=== PATIENT | male | born 1985 | race Two or more races ===

== ENCOUNTER 2017-05-09 22:16 | Emergency (ER) | payer OTHER ==
[2017-05-09 22:23] VITALS: BP 150/96
[2017-05-09] MEDS ORDERED: ACETAMINOPHEN 325 MG TABLET PO ONE (22:24)
--- NOTE | 2017-05-09 22:52 | RADIOLOGY REPORT (SQ) ---
EXAM DESCRIPTION: KNEE LEFT 2 VIEWS COMPLETED DATE/TIME: 05/09/2017 10:45 pm REASON FOR STUDY: injury COMPARISON: None. NUMBER OF VIEWS: Two views. TECHNIQUE: AP and lateral radiographic images acquired of the left knee. LIMITATIONS: None. FINDINGS: MINERALIZATION: Normal. BONES: No acute fracture or dislocation. No worrisome bone lesions. JOINT: No effusion. SOFT TISSUES: No soft tissue swelling. No radio-opaque foreign body. OTHER: No other significant finding. IMPRESSION: NEGATIVE STUDY OF THE LEFT KNEE. NO RADIOGRAPHIC EVIDENCE OF ACUTE INJURY. TECHNICAL DOCUMENTATION: JOB ID: [id number] [employer]- All Rights Reserved
--- NOTE | 2017-05-09 22:53 | RADIOLOGY REPORT (SQ) ---
EXAM DESCRIPTION: ANKLE LEFT AP/LATERAL COMPLETED DATE/TIME: 05/09/2017 10:45 pm REASON FOR STUDY: injury COMPARISON: None. NUMBER OF VIEWS: Two views. TECHNIQUE: AP and lateral radiographic images acquired of the left ankle. LIMITATIONS: None. FINDINGS: MINERALIZATION: Normal. BONES: No acute fracture or dislocation. No worrisome bone lesions. JOINTS: No effusions. SOFT TISSUES: There is soft tissue swelling laterally. OTHER: No other significant finding. IMPRESSION: Soft tissue swelling laterally. No acute fracture or dislocation. TECHNICAL DOCUMENTATION: JOB ID: [id number] [email or web address]- All Rights Reserved
[2017-05-09] MEDS ORDERED: IBUPROFEN 600 MG TABLET PO ONE (23:49)
--- NOTE | 2017-05-09 23:55 | ER Document Report ---
HPI - HPI Patient complains to provider of: left ankle injury Pain Level: 5 Context: Patient is a 31-year-old male who comes emergency department for chief complaint of left ankle pain and left knee pain. He states that he stepped off of a step ladder about 1.5 feet high and accidentally twisted his ankle by inverting it. He also felt pain in his knee. He reports ankle swelling and difficulty walking on it. Patient states he has had a scope performed on the knee and meniscus repair in the past. He denies taking any medications, he denies other medical history. - DERM Skin Color: Normal, [place] Past Medical History - General Information source: Patient - Social History Smoking Status: Never Smoker Drug Abuse: None Lives with: Family Family History: Reviewed & Not Pertinent Patient has suicidal ideation: No Patient has homicidal ideation: No - Medical History Medical History: Negative Renal/ Medical History: Denies: Hx Peritoneal Dialysis Past Surgical History: Reports: Hx Orthopedic Surgery - Immunizations Immunizations up to date: Yes Vertical Provider Document - CONSTITUTIONAL General Appearance: WD/WN, No Apparent Distress - INFECTION CONTROL TRAVEL OUTSIDE OF THE [place] IN LAST 30 DAYS: No - HEENT HEENT: Atraumatic, Normal ENT Exam, Normocephalic - RESPIRATORY Respiratory: Breath Sounds Normal, No Respiratory Distress O2 Sat by Pulse Oximetry: 97 - CARDIOVASCULAR Cardiovascular: Regular Rate, Regular Rhythm - GI/ABDOMEN Gastrointestinal: Abdomen Soft, Abdomen Non-Tender - BACK Back: Normal Inspection - MUSCULOSKELETAL/EXTREMETIES Musculoskeletal/Extremeties: Tender - Tenderness over the left ankle at the lateral malleolus, mild soft tissue swelling, normal sensation and capillary refill, normal leg, knee, hip exam Course - Re-evaluation Re-evalutation: The examination is unremarkable. Ankle examination shows mild soft tissue swelling. X-rays show no abnormality. The x-ray was performed before I saw patient. Discussed with patient, patient will be placed in immobilization, given work release, discussed follow-up with orthopedics, discussed return precautions. Patient states understanding and agreement. - Vital Signs Vital signs: Temp Pulse Resp BP Pulse Ox 98.5 F 75 18 150/96 H 97 05/09/17 22:20 05/09/17 22:20 05/09/17 22:20 05/09/17 22:20 05/09/17 22:20 - Diagnostic Test Radiology reviewed: Image reviewed, Reports reviewed Procedures - Immobilization Left ankle Pre-Proc Neuro Vasc Exam: Normal Immobilizer type: Ankle stirrup Performed by: RN Post-Proc Neuro Vasc Exam: Normal Alignment checked and good: Yes Discharge - Discharge Clinical Impression: Left ankle injury Qualifiers: Encounter type: initial encounter Qualified Code(s): S99.912A - Unspecified injury of left ankle, initial encounter Left knee pain Qualifiers: Chronicity: acute Qualified Code(s): M25.562 - Pain in left knee Condition: Stable Disposition: HOME, SELF-CARE Additional Instructions: Examination indicates a sprain but no fracture. X-ray does not show a fracture or dislocation. Wear the supportive splint, use the crutches, apply ice to the area 3-4 times a day for 10-15 minutes, take the anti-inflammatory medication. Recommend for the first 2-3 days that you keep your foot elevated as often as possible and use the crutches. After swelling resolves resume normal activity. If symptoms continue please follow-up with orthopedics referral. Return to emergency department for any concerning symptoms. Prescriptions: RX: Ibuprofen [Motrin 600 mg Tablet] 600 mg PO Q8HP PRN #24 tablet PRN Reason: Forms: Special Work Note, Return to Work
== END 2017-05-10 00:30 | disposition home or self-care (01) ==
LOC: ER 22:16
PROC: 2W3RX1Z Immobilization of Left Lower Leg using Splint (ICD-10-PCS; principal; 2017-05-09)
DX: S99.912A Unspecified injury of left ankle, initial encounter (principal); M25.562 Pain in left knee; X50.0XXA Overexertion from strenuous movement or load, initial encounter; Y99.0 Civilian activity done for income or pay
CPT/HCPCS: 99283; 73600; 73560; L1902